=== PATIENT | female | born 1940 | race Two or more races ===

== ENCOUNTER → 2021-07-15 | Outpatient (CLI) | payer MEDICARE, OTHER | END | disposition home or self-care (01) | LOC: MSC 09:55 | PROVIDERS: ATTEND Anesthesiology | DX: M25.551 Pain in right hip (principal); M70.61 Trochanteric bursitis, right hip; R10.2 Pelvic and perineal pain; M76.30 Iliotibial band syndrome, unspecified leg; G89.4 Chronic pain syndrome; M51.36 Other intervertebral disc degeneration, lumbar region; M54.16 Radiculopathy, lumbar region; M40.299 Other kyphosis, site unspecified; M62.830 Muscle spasm of back; Z79.891 Long term (current) use of opiate analgesic; Z79.82 Long term (current) use of aspirin ==

== ENCOUNTER 2021-07-18 10:57 | Outpatient (CLI) | payer MEDICARE, OTHER | END 2021-07-18 23:59 | disposition home or self-care (01) | LOC: LAB 10:57 | PROVIDERS: ATTEND Anesthesiology | DX: Z01.812 Encounter for preprocedural laboratory examination (principal); Z20.822 Contact with and (suspected) exposure to COVID-19 | CPT/HCPCS: C9803; U0003 ==

== ENCOUNTER 2021-07-24 07:16 | Day surgery (SDC) | payer MEDICARE, OTHER ==
[2021-07-24] MEDS ORDERED: IOHEXOL 240MG/ML 50 ML IV ONE (08:03)
[2021-07-24] MEDS ORDERED: BUPIVACAINE 0.25% 75 MG/30 ML VIAL ONE (08:03)
[2021-07-24] MEDS ORDERED: LIDOCAINE HCL/MPF 1% 30 ML VIAL IJ ONE (08:03)
[2021-07-24] MEDS ORDERED: methylPREDNISolone ACETATE 80 MG/ML VIAL ONE (08:04)
[2021-07-24] MEDS ORDERED: KETOROLAC TROMETHAMINE INJ 60 MG/2 ML VIAL IM ONE (08:30)
[2021-07-24] MEDS ORDERED: KETOROLAC TROMETHAMINE INJ 30 MG/ML VIAL ONE (08:30)
== END 2021-07-24 09:38 | disposition home or self-care (01) ==
LOC: DS 07:16
PROVIDERS: ATTEND Anesthesiology
DX: M70.61 Trochanteric bursitis, right hip (principal); M79.604 Pain in right leg; M76.30 Iliotibial band syndrome, unspecified leg; G89.4 Chronic pain syndrome; Z98.890 Other specified postprocedural states; Z79.899 Other long term (current) drug therapy; M54.50 Low back pain, unspecified
CPT/HCPCS: 20553; 20610; 73501; 77002; J1040; J1885; J3490 ×2; Q9966

== ENCOUNTER → 2021-08-12 | Outpatient (CLI) | payer MEDICARE, OTHER | END | disposition home or self-care (01) | LOC: MSC 10:40 | PROVIDERS: ATTEND Anesthesiology | DX: M76.31 Iliotibial band syndrome, right leg (principal); M70.61 Trochanteric bursitis, right hip; G89.4 Chronic pain syndrome; M51.36 Other intervertebral disc degeneration, lumbar region; M54.16 Radiculopathy, lumbar region; M96.1 Postlaminectomy syndrome, not elsewhere classified; M62.830 Muscle spasm of back; Z98.890 Other specified postprocedural states; Z79.891 Long term (current) use of opiate analgesic; Z79.82 Long term (current) use of aspirin; Z79.899 Other long term (current) drug therapy ==